=== PATIENT | female | born 1945 | race Caucasian/White ===

== ENCOUNTER → 2017-07-09 | Outpatient (CLI) | payer OTHER ==
[~2017-07-09] MED LIST: ACTOPLUS MET1 TABLE1 PO; ASCORBIC ACID500 M3 PO; ASPIRIN81 M2 PO; CALCIUM 600 +1 EAC9 PO; CENTRUM SILVER1 EAC3 PO; COLACE100 MG PO; CRESTOR10 MG PO; DULCOLAX5 MG PO; GLUCOSAMINE &1 EACH PO; IRBESARTAN-HCT1 EACH PO; TRIAMTERENE-HC1 EACH PO; VESICARE10 MG PO; VITAMIN B12-FO1 EACH PO
== END | disposition home or self-care (01) ==
LOC: NUC 10:24
DX: M19.012 Primary osteoarthritis, left shoulder (principal); M19.011 Primary osteoarthritis, right shoulder; M19.032 Primary osteoarthritis, left wrist; M19.031 Primary osteoarthritis, right wrist; M19.042 Primary osteoarthritis, left hand; M19.041 Primary osteoarthritis, right hand; M47.895 Other spondylosis, thoracolumbar region; M19.072 Primary osteoarthritis, left ankle and foot; M19.071 Primary osteoarthritis, right ankle and foot; M06.9 Rheumatoid arthritis, unspecified; D64.9 Anemia, unspecified; M25.50 Pain in unspecified joint
CPT/HCPCS: 78306; A9503